=== PATIENT | male | born 1995 | race African-American/Black ===

== ENCOUNTER 2016-08-08 03:59 | Emergency (ER) | payer BC ==
[~2016-08-08] VITALS: Ht 185.4 cm; Wt 82.0 kg
[2016-08-08] MEDS ORDERED: KETOROLAC 30MG/ML VIAL IM ONE (04:30)
[2016-08-08] MEDS ORDERED: DEXAMETHASONE 10MG/ML 1ML VIAL IM ONE (04:30)
[2016-08-08] MEDS ORDERED: AMOXICILLIN/POTASSIUM CLAVULANATE 875/125MG TAB PO ONE (04:30)
[2016-08-08 06:17] VITALS: BP 122/70
== END 2016-08-08 06:18 | disposition home or self-care (01) ==
LOC: ER 03:59
DX: J02.9 Acute pharyngitis, unspecified (principal); F17.210 Nicotine dependence, cigarettes, uncomplicated; R03.0 Elevated blood-pressure reading, without diagnosis of hypertension; F41.9 Anxiety disorder, unspecified
CPT/HCPCS: 96372; 99284; J1100; J1885; Z7610

== ENCOUNTER 2016-11-01 00:47 | Emergency (ER) | payer BC ==
[~2016-11-01] VITALS: Ht 185.4 cm; Wt 84.0 kg
[2016-11-01 03:00] VITALS: BP 112/60
== END 2016-11-01 04:41 | disposition home or self-care (01) ==
LOC: ER 00:47
DX: R07.9 Chest pain, unspecified (principal); F41.9 Anxiety disorder, unspecified; F12.10 Cannabis abuse, uncomplicated; Z87.891 Personal history of nicotine dependence
CPT/HCPCS: 71010; 93005; 99284; Z7610

== ENCOUNTER 2019-05-29 11:01 | Emergency (ER) | payer BC ==
[~2019-05-29] VITALS: Ht 177.8 cm; Wt 68.0 kg
[2019-05-29] MEDS: IBUPROFEN 600MG TABLET PO ONE ×2 (11:36→11:40)
[2019-05-29 13:25] VITALS: BP 118/79
== END 2019-05-29 13:26 | disposition home or self-care (01) ==
LOC: ER 11:01
DX: J06.9 Acute upper respiratory infection, unspecified (principal); F41.9 Anxiety disorder, unspecified; R05 Cough; F12.10 Cannabis abuse, uncomplicated
CPT/HCPCS: 93005; 99283